=== PATIENT | female | born 2000 | race Native Hawaiian/Other Pacific Islander ===

== ENCOUNTER 2019-06-03 21:23 | Emergency (ER) | payer OTHER ==
[~2019-06-03] VITALS: Ht 144.8 cm; Wt 68.9 kg
[2019-06-03 21:58] VITALS: BP 100/65; TEMP 97.5
[2019-06-03 22:44] LABS: PLATELET COUNT 203 K/uL (152-353)
[2019-06-03 22:54] LABS: POTASSIUM 3.7 mmol/L (3.6-5.2)
[2019-06-03 23:14] LABS: PARTIAL THROMBOPLASTIN TIME 25.9 SECONDS (24.5-33.6)
== END 2019-06-03 23:10 | disposition home or self-care (01) ==
LOC: ED 21:23
PROVIDERS: Hospitalist
DX: R10.31 Right lower quadrant pain (principal)
CPT/HCPCS: 80053; 81000; 81025; 82150; 83690; 85027; 85610; 85730; 96374; 99284; J1885